=== PATIENT | female | born 1950 | race Caucasian/White ===

== ENCOUNTER 2020-09-28 13:24 | Inpatient (IN) | payer OTHER ==
[2020-09-28 14:45] LABS: Absolute Lymphocytes (CBC) 1.4 K/uL (0.7-4.9); Basophils % 0.4 % (0-1.3); Hematocrit 38.7 % (36.0-45.0); Lymphocytes % 10.8 % (15.3-44.8); MPV 7.3 fL (7.6-11.3); RBC Red Blood Cell Count 3.88 M/uL (3.86-4.86)
[2020-09-28 14:53] LABS: Protime INR 0.94
--- NOTE | 2020-09-28 15:03 | RAD REPORT ---
EXAM DESCRIPTION: RAD - Chest Single View - 09/28/2020 2:55 pm CLINICAL HISTORY: Cough;COPD COMPARISON: Two view chest September 2018 TECHNIQUE: AP portable chest image was obtained 09/28/2020 2:55 pm . FINDINGS: Chronic interstitial lung pattern matches comparison. No superimposed failure, infiltrate or mass. Heart and vasculature are normal. No measurable pleural effusion and no pneumothorax. No acu te bony abnormality seen. No acute aortic findings suspected. IMPRESSION: No acute cardiopulmonary process. No significant change from comparison study.
[2020-09-28 15:09] LABS: ALT/SGPT 40 U/L (12-78); AST/SGOT 24 U/L (15-37); Albumin 3.5 g/dL (3.4-5.0); Alkaline Phosphatase 141 U/L (45-117); BUN Blood Urea Nitrogen 14 mg/dL (7-18); Bicarbonate 35 mmol/L (21-32); Bilirubin Direct 0.1 mg/dL (0-0.2); Bilirubin Total 0.5 mg/dL (0.2-1.0); Glucose Level 101 mg/dL (74-106); Lipase 103 U/L (73-393); Magnesium 2.1 mg/dL (1.8-2.4); NT PRO-BNP 112 pg/mL (<125); Potassium 4.4 mmol/L (3.5-5.1); Protein, Total 7.3 g/dL (6.4-8.2); Sodium Level 146 mmol/L (136-145); Troponin (Emerg Dept Use Only) < 0.02 ng/mL (0.0-0.045)
--- NOTE | 2020-09-28 15:17 | RAD REPORT ---
EXAM DESCRIPTION: CT - Chest Abd Pelvis Wo Con - 09/28/2020 3:06 pm CLINICAL HISTORY: BACK PAIN;Cough;COPD COMPARISON: CTANGIO CHEST FOR PE dated 07/09/2014; Chest Single View dated 09/28/2020; Chest Pa And Lat (2 Views) dated 09/07/2018 TECHNIQUE: Axial 5 millimeter thick images of the chest, abdomen and pelvis were obtained without IV contrast. Oral contrast was administered. All CT scans are performed using dose optimization technique as appropriate and may include automated exposure control or mA/KV adjustment according to patient size. FINDINGS: Underlying fibro emphysematous changes are present with prominent bullous changes of the u pper lobes. No alveolar opacities in the interstitial pattern is decreased in prominence from 2014. N o significant edema. No pneumothorax or pleural effusion. No chest wall mass or abnormal axillary ly mphadenopathy seen. Mediastinal and hilar regions show no mass or abnormal lymphadenopathy. No sign ificant cardiac finding. The liver, spleen and pancreas show no significant findings for non contrast imaging. Cholecystectom y clips are present. No abnormal biliary tree dilatation. No hydronephrosis or suspicious renal mass. Isodense masses and pyelonephritis cannot be excluded on non contrast imaging. No adrenal abnormalities. Bilateral nonobstructing calyx calculi are present. Urinary bladder is fully contracted limiting assessment. Uterus is absent. Ovaries are absent or atro phic. No dilated bowel loops or focal ball bowel wall thickening. Moderate stool volume is seen in the righ t-side of the colon and in the transverse colon. The appendix is normal. No free air, free fluid or inflammatory stranding. No hernia, mass or bulky lymphadenopathy. Approximately 50% compression fracture deformity is present in the T6 vertebral body. Posterior wall encroaches mildly into the central canal. No pathologic component seen. This accentuates midthoracic kyphosis. Compression fracture is new from September 2018 but is otherwise of uncertain age. No other comp ression fracture changes or acute bone process seen. IMPRESSION: Approximately 50% compression fracture T6 body without pathologic component. This is new from September 2018 but is otherwise of uncertain age. No other acute bone process seen. Fibro emphysematous lung changes with no acute or worrisome CT chest finding. No acute CT abdomen or pelvis finding. CT abdomen and pelvis imaging shows no significant or suspicious finding.
[2020-09-28 15:19] LABS: Arterial Blood Carboxyhemoglob 1.7 % (0-1.5); Blood Gas Oxyhemoglobin 91.4 % (94-97); Blood O2 Saturation 93.6 % (92-98.5)
[2020-09-28] MEDS ORDERED: MORPHINE 2 MG/ML SYR ONE ×2 (15:27→17:13)
[2020-09-28] MEDS ORDERED: ONDANSETRON 4 MG/2 ML VIAL ONE (15:27)
[2020-09-28] MEDS ORDERED: NA CHLORIDE 0.9% 1,000 ML ONE (15:27)
[2020-09-28] MEDS ORDERED: LEVALBUTEROL 1.25 MG/3 ML NEB ONE (15:27)
[2020-09-28] MEDS ORDERED: FAMOTIDINE 20 MG/2 ML VIAL IV ONE (15:27)
[2020-09-28] MEDS ORDERED: IPRATROPIUM BROM 0.5MG/2.5ML ONE (15:27)
[2020-09-28] MEDS ORDERED: dexAMETHasone 10 MG/ML VIAL ONE (15:27)
--- NOTE | 2020-09-28 15:42 | ER ---
Nurse's Notes [facility] Name: Heide Blanc Age: 70 yrs Sex: Female : 1950 Arrival Date: 09/28/2020 Time: 13:28 Bed 24 Private MD: Diagnosis: Chronic obstructive pulmonary disease with (acute) exacerbation;Other fracture of unspecified thoracic vertebra-T6, 50% compression fracture;Weakness Presentation: 09/28 13:40 Chief complaint: EMS states: patient called from home c/o shortness of breath and chest zb pain and back pain. pain started 3 weeks ago but is continuously getting worse. Coronavirus screen: Client presents with at least one sign or symptom that may indicate coronavirus-19. Ebola Screen: No symptoms or risks identified at this time. Initial Sepsis Screen: Does the patient meet any 2 criteria? Yes Does the patient have a suspected source of infection? No. Patient's initial sepsis screen is negative. Risk Assessment: Do you want to hurt yourself or someone else? Patient reports no desire to harm self or others. Onset of symptoms was September 28, 2020. 13:40 Acuity: JALIL 2 zb 13:40 Method Of Arrival: [facility] Triage Assessment: 13:40 General: Appears uncomfortable, Behavior is anxious. Pain: Complains of pain in chest zb and lumbar area and thoracic area Pain does not radiate. Pain currently is 10 out of 10 on a pain scale. Quality of pain is described as aching, sharp, throbbing, Pain began 3 weeks ago Is continuous, Alleviated by nothing. Neuro: Level of Consciousness is awake, alert, obeys commands, Oriented to person, place, time, situation, Moves all extremities. Full function. Cardiovascular: Reports chest pain, shortness of breath, Heart tones S1 S2 present Patient's skin is warm and dry. Respiratory: Reports shortness of breath at rest on exertion labored breathing Airway is patent Respiratory effort is labored, Respiratory pattern is tachypnea Breath sounds are diminished bilaterally. the patient has moderate shortness of breath. GI: Abdomen is round Abdomen is tender to palpation X 4 quads. Reports constipation, Patient currently denies nausea, vomiting. : Urine is clear. Derm: Skin is fragile, is thin, Bruising that is bright red, dark purple, on bilateral arms. Musculoskeletal: Range of motion: intact in all extremities. Historical: - Allergies: 14:23 Sulfa (Sulfonamide Antibiotics); zb 14:23 steriods; zb - Home Meds: 14:23 dilaudid 4 mg tid [Active]; Belbuca 750 mcg buccal film 1 film 2 times per day zb [Active]; Celexa 10 mg Oral tab 1 tab once daily [Active]; clorazepate dipotassium 3.75 mg oral tab 2 times per day [Active]; anora inhaler 62.5 mcg/ 25mcg 1 puff at HS [Active]; albuterol sulfate 2.5 mg /3 mL (0.083 %) Inhl nebu 4 times per day [Active]; dexamethasone 1 mg Oral tab 1 tab 2 times per day [Active]; sumatriptan 100mg daily [Active]; - PMHx: 14:23 COPD; Migraines; Hypertension; zb - PSHx: 14:23 Hysterectomy; Cholecystectomy; back surgery; zb - Immunization history:: Adult Immunizations up to date. - Social history:: Smoking status: Patient/guardian denies using tobacco, Stopped _ months ago 6. - Family history:: not pertinent. - Hospitalizations: : No recent hospitalization is reported. Screenin:30 Abuse screen: Denies threats or abuse. Denies injuries from another. Nutritional zb screening: No deficits noted. Tuberculosis screening: No symptoms or risk factors identified. Fall Risk Fall in past 12 months (25 points). No secondary diagnosis (0 pts). IV access (20 points). Ambulatory Aid- Crutches/Cane/Walker (15 pts). Gait- Weak (10 pts.). Mental Status- Oriented to own ability (0 pts). Total Spencer Fall Scale indicates High Risk Score (45 or more points). Fall prevention measures have been instituted. Side Rails Up X 2 Placed Close to Nursing Station Frequent Obs/Assessments Occuring Family Present and informed to notify staff if the need to leave the bedside As available patient and family educated on Fall Prevention Program and Strategies. Assessment: 14:00 Reassessment: See triage note. zb 15:00 Reassessment: Patient appears in no apparent distress at this time. Patient and/or zb family updated on plan of care and expected duration. Pain level reassessed. IV infusing. 16:00 Reassessment: Patient appears in no apparent distress at this time. Patient and/or zb family updated on plan of care and expected duration. Pain level reassessed. hospitalist at bedside. Patient states symptoms have improved. 17:00 Reassessment: Patient appears in no apparent distress at this time. Patient is alert, zb oriented x 3, equal unlabored respirations, skin warm/dry/pink. Vital Signs: 14:24 BP 141 / 94; Pulse 93; Resp 24; Temp 99.8(O); Pulse Ox 100% 2 lpm ; Weight 65.77 kg; zb Height 5 ft. 2 in. (157.48 cm); Pain 10/10; 15:30 BP 159 / 88; Pulse 104; Resp 24; Pulse Ox 100% on 2 lpm NC; zb 16:49 BP 143 / 113; Pulse 102; Resp 22; Pulse Ox 100% on 2 lpm NC; zb 17:33 BP 141 / 87; Pulse 101; Resp 23; Pulse Ox 100% on 2 lpm NC; zb 14:24 Body Mass Index 26.52 (65.77 kg, 157.48 cm) zb ED Course: 13:28 Patient arrived in ED. iw 13:29 Jd Zarco MD is Attending Physician. talia 13:40 Sarah Champagne RN is Primary Nurse. zb 13:42 Triage completed. zb 14:16 Inserted saline lock: 22 gauge in left upper arm, using aseptic technique. Blood iw collected. 14:55 XRAY Chest (1 view) In Process Unspecified. EDMS 15:07 CT Chest Abdomen Pelvis W/O Contrast In Process Unspecified. EDMS 15:37 Hussein Dye MD is Hospitalizing Provider. talia 17:34 Patient has correct armband on for positive identification. Bed in low position. Call zb light in reach. Side rails up X 1. Adult w/ patient. potline monitor on. Pulse ox on. NIBP on. 18:30 Report given to JACLYN Benitez. zb 18:40 No provider procedures requiring assistance completed. Patient admitted, IV remains in zb place. 18:41 Arm band placed on. zb Administered Medications: 15:20 Drug: morphine 2 mg Route: IVP; Site: left upper arm; zb 15:45 Follow up: Response: No adverse reaction; Pain is decreased; RASS: Alert and Calm (0) zb 15:31 Drug: Pepcid (famotidine) 20 mg Route: IVP; Site: left upper arm; zb 16:10 Follow up: Response: No adverse reaction zb 15:31 Drug: Zofran (Ondansetron) 4 mg Route: IVP; Site: left upper arm; zb 16:00 Follow up: Response: No adverse reaction zb 15:32 Drug: NS 0.9% 1000 ml Route: IV; Rate: 125 ml/hr; Site: left upper arm; zb 18:45 Follow up: Response: No adverse reaction; IV Intake: 375ml zb 15:32 Drug: AtroVENT (ipratropium) Aerosol 0.5 mg Route: Inhalation; zb 15:32 Drug: Xopenex (levalbuterol) 2.5 mg Route: Inhalation; zb 15:32 Not Given (Duplicate Order): SOLU-Medrol (methylPrednisoLONE) 2 mg/kg IVP once talia 16:03 Drug: Decadron - Dexamethasone 4 mg Route: IVP; Site: left upper arm; zb 16:10 Follow up: Response: No adverse reaction zb 16:20 Drug: morphine 2 mg {Note: RASS +1.} Route: IVP; Site: left upper arm; zb 17:00 Follow up: Response: No adverse reaction; No change in condition; Pain is decreased; zb RASS: Alert and Calm (0) Intake: 18:45 IV: 375ml; Total: 375ml. zb Outcome: 15:41 Decision to Hospitalize by Provider. [facility] 18:41 Admitted to Med/surg accompanied by tech, via wheelchair, room 430, with oxygen, with zb chart, Report called to JACLYN Benitez 18:41 Condition: good 18:41 Instructed on the need for admit, Demonstrated understanding of instructions. 18:42 Patient left the ED. zb Signatures: Dispatcher [employer] Jd Perez MD MD cha Williams, Irene, RN RN iw Brown, Zipporah, RN RN zsy Corrections: (The following items were deleted from the chart) 19:40 19:38 Response: No adverse reaction; IV Intake: 375ml zb zb
--- NOTE | 2020-09-28 15:42 | EDPHYS ---
Physician Documentation [facility] Name: Heide Blanc Age: 70 yrs Sex: Female : 1950 Arrival Date: 09/28/2020 Time: 13:28 Bed 24 Private MD: [place] Physician Jd Zarco HPI: 09/28 14:27 This 70 yrs old Female presents to ER via EMS with complaints of COPD AND talia BACK PAIN. 14:27 The patient has shortness of breath with light activity. Onset: The symptoms/episode talia began/occurred 7 day(s) ago. Duration: The symptoms are continuous, and are steadily getting worse. The patient's shortness of breath is aggravated by coughing, light activity, walking, is alleviated by sitting up, application of supplemental oxygen. The patient presents with pain and decreased range of motion. The symptoms are located in the thoracic area and lumbar area. Onset: The symptoms/episode began/occurred 3 week(s) ago. The pain does not radiate. Historical: - Allergies: 14:23 Sulfa (Sulfonamide Antibiotics); zb 14:23 steriods; zb - Home Meds: 14:23 dilaudid 4 mg tid [Active]; Belbuca 750 mcg buccal film 1 film 2 times per day zb [Active]; Celexa 10 mg Oral tab 1 tab once daily [Active]; clorazepate dipotassium 3.75 mg oral tab 2 times per day [Active]; anora inhaler 62.5 mcg/ 25mcg 1 puff at HS [Active]; albuterol sulfate 2.5 mg /3 mL (0.083 %) Inhl nebu 4 times per day [Active]; dexamethasone 1 mg Oral tab 1 tab 2 times per day [Active]; sumatriptan 100mg daily [Active]; - PMHx: 14:23 COPD; Migraines; Hypertension; zb - PSHx: 14:23 Hysterectomy; Cholecystectomy; back surgery; zb - Immunization history:: Adult Immunizations up to date. - Social history:: Smoking status: Patient/guardian denies using tobacco, Stopped _ months ago 6. - Family history:: not pertinent. - Hospitalizations: : No recent hospitalization is reported. ROS: 14:30 Constitutional: Negative for fever, chills, and weight loss, Eyes: Negative for injury, talia pain, redness, and discharge, ENT: Negative for injury, pain, and discharge, Neck: Negative for injury, pain, and swelling, Cardiovascular: Negative for chest pain, palpitations, and edema, Abdomen/GI: Negative for abdominal pain, nausea, vomiting, diarrhea, and constipation, : Negative for injury, bleeding, discharge, and swelling, MS/Extremity: Negative for injury and deformity, Skin: Negative for injury, rash, and discoloration, Neuro: Negative for headache, weakness, numbness, tingling, and seizure, Psych: Negative for depression, anxiety, suicide ideation, homicidal ideation, and hallucinations, Allergy/Immunology: Negative for hives, rash, and allergies, Endocrine: Negative for neck swelling, polydipsia, polyuria, polyphagia, and marked weight changes, Hematologic/Lymphatic: Negative for swollen nodes, abnormal bleeding, and unusual bruising. 14:30 Respiratory: Positive for cough, shortness of breath, at rest. 14:30 Back: Positive for decreased range of motion, pain with movement, of the thoracic area and lumbar area. Exam: 14:30 Constitutional: This is a well developed, well nourished patient who is awake, alert, talia and in no acute distress. Head/Face: Normocephalic, atraumatic. Eyes: Pupils equal round and reactive to light, extra-ocular motions intact. Lids and lashes normal. Conjunctiva and sclera are non-icteric and not injected. Cornea within normal limits. Periorbital areas with no swelling, redness, or edema. ENT: Nares patent. No nasal discharge, no septal abnormalities noted. Tympanic membranes are normal and external auditory canals are clear. Oropharynx with no redness, swelling, or masses, exudates, or evidence of obstruction, uvula midline. Mucous membranes moist. Neck: Trachea midline, no thyromegaly or masses palpated, and no cervical lymphadenopathy. Supple, full range of motion without nuchal rigidity, or vertebral point tenderness. No Meningismus. Chest/axilla: Normal chest wall appearance and motion. Nontender with no deformity. No lesions are appreciated. Cardiovascular: Regular rate and rhythm with a normal S1 and S2. No gallops, murmurs, or rubs. Normal PMI, no JVD. No pulse deficits. Abdomen/GI: Soft, non-tender, with normal bowel sounds. No distension or tympany. No guarding or rebound. No evidence of tenderness throughout. Female : Normal external genitalia. Skin: Warm, dry with normal turgor. Normal color with no rashes, no lesions, and no evidence of cellulitis. 14:30 Respiratory: mild respiratory distress is noted, Respirations: labored breathing, that is mild, Breath sounds: decreased breath sounds, rhonchi, that are mild, stridor, that is mild, Respiratory rate: 24 15:49 ECG was reviewed by the Attending Physician. [facility] Vital Signs: 14:24 BP 141 / 94; Pulse 93; Resp 24; Temp 99.8(O); Pulse Ox 100% 2 lpm ; Weight 65.77 kg; zb Height 5 ft. 2 in. (157.48 cm); Pain 10/10; 15:30 BP 159 / 88; Pulse 104; Resp 24; Pulse Ox 100% on 2 lpm NC; zb 16:49 BP 143 / 113; Pulse 102; Resp 22; Pulse Ox 100% on 2 lpm NC; zb 17:33 BP 141 / 87; Pulse 101; Resp 23; Pulse Ox 100% on 2 lpm NC; zb 14:24 Body Mass Index 26.52 (65.77 kg, 157.48 cm) zb MDM: 13:29 Patient medically screened. talia 14:32 Differential diagnosis: Anemia Bronchitis Chronic Obstructive Pulmonary Disease talia arthritis, Fatigue Fracture Osteoarthritis Osteoporosis Peptic Ulcer Renal Infarction ruptured disc, Ureterolithiasis pneumonia, pulmonary edema, reactive airway disease. Antibiotic administration: Levaquin given. The patient's Wells Deep Vein Thrombosis Score was calculated as follows: Total Score: 0-2 Pts- Low Risk. The patient's pulmonary embolism risk score was calculated as follows: Total Score: 0-2 points. This patient was found to be at low risk for a pulmonary embolism by using the Well's assessment criteria. Immunization status: Pneumococcal vaccine: Influenza vaccine: Data reviewed: vital signs, nurses notes, lab test result(s), EKG, radiologic studies, CT scan, plain films. Data interpreted: cardiac monitor: rate is 93 beats/min, rhythm is regular, Pulse oximetry: on 2L(s) per nasal canula, is 100 %. Test interpretation: by ED physician or midlevel provider: ECG, plain radiologic studies. Counseling: I had a detailed discussion with the patient and/or guardian regarding: the historical points, exam findings, and any diagnostic results supporting the discharge/admit diagnosis, lab results, radiology results. 09/28 14:24 Order name: Basic Metabolic Panel [facility] 09/28 14:24 Order name: CBC with Diff; Complete Time: 15:30 [facility] 09/28 14:24 Order name: LFT's [facility] 09/28 14:24 Order name: Magnesium; Complete Time: 15:30 [facility] 09/28 14:24 Order name: NT PRO-BNP; Complete Time: 15:30 [facility] 09/28 14:24 Order name: PT-INR; Complete Time: 15:30 [facility] 09/28 14:24 Order name: Troponin (emerg Dept Use Only); Complete Time: 15:30 [facility] 09/28 14:24 Order name: Lipase; Complete Time: 15:30 [facility] 09/28 14:24 Order name: Blood Culture Adult (2) [facility] 09/28 14:24 Order name: ABG [facility] 09/28 14:25 Order name: Basic Metabolic Panel; Complete Time: 15:30 [facility] 09/28 14:25 Order name: Liver (Hepatic) Function; Complete Time: 15:30 [facility] 09/28 18:05 Order name: SARS-COV-2 RT PCR [facility] 09/28 14:24 Order name: XRAY Chest (1 view); Complete Time: 15:30 [facility] 09/28 14:24 Order name: EKG; Complete Time: 14:25 [facility] 09/28 14:24 Order name: Cardiac monitoring; Complete Time: 14:42 [facility] 09/28 14:24 Order name: EKG - Nurse/Tech; Complete Time: 14:43 [facility] 09/28 14:24 Order name: IV Saline Lock; Complete Time: 14:43 [facility] 09/28 14:24 Order name: Labs collected and sent; Complete Time: 14:43 [facility] 09/28 14:24 Order name: CT Chest Abdomen Pelvis W/O Contrast; Complete Time: 15:30 [facility] 09/28 16:50 Order name: CONS Physician Consult [facility] 09/28 14:24 Order name: O2 Per Protocol; Complete Time: 14:43 [facility] 09/28 14:24 Order name: O2 Sat Monitoring; Complete Time: 14:43 [facility] EC:49 Rate is 95 beats/min. Rhythm is regular. QRS Gilbert is Normal. RI interval is normal. QRS talia interval is normal. QT interval is normal. No Q waves. T waves are Normal. No ST changes noted. Clinical impression: Normal ECG and No evidence of ischemia. Interpreted by me. Reviewed by me. Administered Medications: 15:20 Drug: morphine 2 mg Route: IVP; Site: left upper arm; zb 15:45 Follow up: Response: No adverse reaction; Pain is decreased; RASS: Alert and Calm (0) zb 15:31 Drug: Pepcid (famotidine) 20 mg Route: IVP; Site: left upper arm; zb 16:10 Follow up: Response: No adverse reaction zb 15:31 Drug: Zofran (Ondansetron) 4 mg Route: IVP; Site: left upper arm; zb 16:00 Follow up: Response: No adverse reaction zb 15:32 Drug: NS 0.9% 1000 ml Route: IV; Rate: 125 ml/hr; Site: left upper arm; zb 18:45 Follow up: Response: No adverse reaction; IV Intake: 375ml zb 15:32 Drug: AtroVENT (ipratropium) Aerosol 0.5 mg Route: Inhalation; zb 15:32 Drug: Xopenex (levalbuterol) 2.5 mg Route: Inhalation; zb 15:32 Not Given (Duplicate Order): SOLU-Medrol (methylPrednisoLONE) 2 mg/kg IVP once talia 16:03 Drug: Decadron - Dexamethasone 4 mg Route: IVP; Site: left upper arm; zb 16:10 Follow up: Response: No adverse reaction zb 16:20 Drug: morphine 2 mg {Note: RASS +1.} Route: IVP; Site: left upper arm; zb 17:00 Follow up: Response: No adverse reaction; No change in condition; Pain is decreased; zb RASS: Alert and Calm (0) Disposition: 09/28/20 15:41 Hospitalization ordered by Hussein Dye for Inpatient Admission. Preliminary diagnosis are Chronic obstructive pulmonary disease with (acute) exacerbation, Other fracture of unspecified thoracic vertebra - T6, 50% compression fracture, Weakness. - Bed requested for Telemetry/MedSurg (observation). - Status is Inpatient Admission. zb - Condition is Fair. - Problem is new. - Symptoms have improved. Signatures: Dispatcher [employer] [facility] Jd Zarco MD MD cha Botello, Elizabeth eb Brown, Zipporah RN RN zb Corrections: (The following items were deleted from the chart) 17:13 16:31 CORONAVIRUS+MR.LAB.BRZ ordered. [facility] 17:25 15:41 Hospitalization Ordered by Hussein Dye MD for Inpatient Admission. Preliminary eb diagnosis is Chronic obstructive pulmonary disease with (acute) exacerbation; Other fracture of unspecified thoracic vertebra - T6, 50% compression fracture; Weakness. Bed requested for Telemetry/MedSurg (observation). Status is Inpatient Admission. Condition is Fair. Problem is new. Symptoms have improved. talia 18:42 17:25 09/28/2020 15:41 Hospitalization Ordered by Hussein Dye MD for Inpatient zb Admission. Preliminary diagnosis is Chronic obstructive pulmonary disease with (acute) exacerbation; Other fracture of unspecified thoracic vertebra - T6, 50% compression fracture; Weakness. Bed requested for Telemetry/MedSurg (observation). Status is Inpatient Admission. Condition is Fair. Problem is new. Symptoms have improved. eb
--- NOTE | 2020-09-28 17:07 | P.HP ---
Certification for Inpatient Patient admitted to: Inpatient With expected LOS: >2 Midnights Practitioner: I am a practitioner with admitting privileges, knowledge of patient current condition, hospital course, and medical plan of care. Services: Services provided to patient in accordance with Admission requirements found in Title 42 Section 412.3 of the Code of Federal Regulations Patient History Date of Service: 09/28/20 Reason for admission: Practical pain, compression fracture, neurologic symptoms, COPD History of Present Illness: 70yo F, PMH: chronic pain on dilaudid / buprenorphine, COPD on BIPAP at night, Migraines, Presents to ED due to severe, intractable back and chest pain. Associated with weakness in bilateral legs, R foot drop, worsened urinary incontinence, difficulty breathing. Patient tripped at home and fell ~3 weeks ago, landing on R side and back. Since then, symptoms have been progressively worsening. Patient is now debilitated due to the symptoms. She is unable to hardly move at this point. She has been taking her home chronic medication of Dilaudid p.o. 4 mg t.i.d., and buprenorphine 750mcg BID, and this has not been enough. She reports significant shortness of breath that has been worsening as well. Reports slight wheeze, and pain on inspiration. Denies any fevers/chills. h/o neck and lumbar back surgery >20 yrs ago. In the ER, workup notable for mild leukocytosis, bicarb: 35, ABG with pCO2: 53, PO2: 66. CT chest/abdomen/pelvis: 50% compression fracture T6 body without pathologic component. Waxer Operator wall encroaches mildly and to the central canal. This is new from September 2018, but otherwise of uncertain age. Fibro emphysematous lung changes with no acute or worrisome CT findings. ED physician recommends admission for pain control and copd treatment. Allergies bupropion HCl [From Wellbutrin] Allergy (Verified 07/10/14 13:56) Itching/Hives/Rash cortisone Allergy (Unverified 07/17/14 09:41) Unknown Sulfa (Sulfonamide Antibiotics) Allergy (Verified 07/09/14 21:54) Itching/Hives/Rash steroids Allergy (Severe, Uncoded 07/09/14 21:54) Anaphylaxis Home Medications: Ascorbic Acid [Vitamin C with Cristel Hips] 500 mg PO DAILY 07/10/14 Bifidobacterium Infantis [Align] 4 mg PO DAILY 07/10/14 Cholecalciferol (Vitamin D3) [Vitamin D3] 2,000 unit PO DAILY 07/10/14 Clorazepate Dipotassium [Tranxene T-Tab] 3.75 mg PO BIDP PRN 07/10/14 Cranberry Fruit Extract/Vit C [Azo Cranberry Softgel] 450 mg PO BID 07/10/14 Esomeprazole Mag Trihydrate [Nexium] 40 mg PO BEDTIME 07/10/14 Hydromorphone [Dilaudid*] 8 mg PO QIDP PRN 07/10/14 Milk Thistle Seed Extract [Milk Thistle] 250 mg PO DAILY 07/10/14 Multivit with Calcium,Iron,Min [Multiple Vitamins For Women] 2 tab PO DAILY 07/10/14 Karnack-3 Fatty Acids/Fish Oil [Fish Oil 1,000 mg Softgel] 1,000 mg PO DAILY 07/10/14 Pregabalin [Lyrica*] 50 mg PO BEDTIME 07/10/14 Theophylline Anhydrous [Trell-24] 200 mg PO DAILY 07/10/14 Ubidecarenone [Co Q-10] 100 mg PO DAILY 07/10/14 Umeclidinium Brm/Vilanterol Tr [Anoro Ellipta 62.5-25 Mcg INH] 1 puff IH DAILY #1 disk.w.dev 07/10/14 Citalopram [Celexa*] 10 mg PO DAILY #30 tablet 07/12/14 dexAMETHasone [Decadron*] 2 mg PO BID #20 tab 07/12/14 Albuterol Sulfate [Albuterol Sulfate 0.083% Neb Soln] 2.5 mg IH Q8HP PRN #90 ml 07/13/14 Megestrol [Megace*] 800 mg PO DAILY #240 ml 07/13/14 - Past Medical/Surgical History Diabetic: No -: COPD on chronic O2, BIPAP -: Smoker -: chronic back pain -: Hysterectomy -: back surgeries -: tumor removed from neck - Family History Family History: Reviewed- Non-Contributory - Social History Smoking Status: Former smoker (quit 6 yrs) Alcohol use: No CD- Drugs: No Caffeine use: Yes Place of Residence: Home Review of Systems 10-point ROS is otherwise unremarkable Physical Examination - Physical Exam General: Alert, Severe distress HEENT: Sclerae nonicteric Neck: Supple, No LAD Respiratory: Diminished, Expiratory wheezes, Other (poor inspiration) Cardiovascular: Regular rate/rhythm, Normal S1 S2, Edema (trace b/l to mid- tibia) Gastrointestinal: Soft and benign, Non-distended, Tenderness (RLQ (chronic)) Musculoskeletal: Tenderness (at level of T6-T7, and T10. tender along lumbar spine.), Other (lower back pain with passive/active ROM of b/l legs/hips) Integumentary: No rashes, No breakdown Neurological: Normal speech, Normal affect, Other (b/l upper extremities: 5/5 strength, sensation intact. b/l lower extremities: sensation intact, strength appears to be at least 4/5, significantly limited due to lumbar pain with testing) - Studies Laboratory Data (last 24 hrs) 09/28/20 14:30: PT 10.8, INR 0.94 09/28/20 14:30: WBC 13.30 H, Hgb 12.5, Hct 38.7, Plt Count 219 09/28/20 14:30: Sodium 146 H, Potassium 4.4, BUN 14, Creatinine 1.12, Glucose 101, Magnesium 2.1, Total Bilirubin 0.5, AST 24, ALT 40, Alkaline Phosphatase 141 H, Lipase 103 Assessment and Plan - Advance Directives Does patient have a Living Will: No Does patient have a Durable POA for Healthcare: No Physician Review Additional Text: Problem List T6 compression fracture, posterior mild encroachment of central canal Intractable acute back pain leg weakness, urinary incontinence Chronic lower back and chest pain acute on chronic COPD exacerbation chronic COPD on home O2, BIPAP at night -severe pain, admit for parenteral pain medication -suspect compression fracture from fall ~3 weeks ago, as timing fits -concern for nerve involvement given new weakness / worsened urinary incontinence -will obtain MRI for further evaluation -IV dilaudid ordered -need to confirm home medications, restart as appropriate -allergy to steroids, but reports takes dexamethasone BID chronically -will give 10mg IV dexamethasone, transition to PO tomorrow to see if assists with pain/weakness -neurology consulted -oxygen, nebs, steroids for component of COPD exacerbation, suspect SOB is from not wanting to breathe deeply due to pain -pulm consulted VTE: lovenox Code: full Dispo: anticipate hospitalization > 2 days, likely dc home Time Spent Managing Pts Care (In Minutes): 60
[2020-09-28] MEDS ORDERED: dexAMETHasone 10 MG/ML VIAL IV ONE (19:48)
[2020-09-28] MEDS ORDERED: ALBUTEROL 2.5 MG/3 ML NEB SOL NEB PRN (19:48)
[2020-09-28] MEDS ORDERED: ONDANSETRON 4 MG/2 ML VIAL IV PRN (19:48)
[2020-09-28] MEDS: HYDROMORPHONE HCL 1 MG/ML INJ IV PRN (22:08)
[2020-09-28] MEDS: ALBUTEROL 2.5 MG/3 ML NEB SOL NEB SCH (23:40)
[2020-09-28] MEDS: IPRATROPIUM BROM 0.5MG/2.5ML NEB SCH (23:40)
[2020-09-29 00:10] LABS: C-Reactive Protein 9.25 mg/L (<3.00)
[2020-09-29 00:25] VITALS: BMI 26.5
[2020-09-29] MEDS ORDERED: ALBUTEROL 2.5 MG/3 ML NEB SOL IH PRN (02:18)
[2020-09-29] MEDS ORDERED: CLORAZEPATE DIPOTASSIUM 7.5 MG PO PRN (02:18)
[2020-09-29] MEDS ORDERED: HOME MED 1 EA UNK (Ipratropium/Albuterol Sulfate [Combivent Respimat 20-100 Mcg] 4 GM Mist IH PRN (02:18)
[2020-09-29] MEDS ORDERED: IPRATROPIUM BROM 0.5MG/2.5ML IH PRN (02:36)
[2020-09-29] MEDS: IPRATROPIUM BROM 0.5MG/2.5ML NEB SCH ×4 (02:52→19:25)
[2020-09-29] MEDS: ALBUTEROL 2.5 MG/3 ML NEB SOL NEB SCH ×4 (02:52→19:25)
[2020-09-29] MEDS: HYDROMORPHONE HCL 1 MG/ML INJ IV PRN ×5 (03:23→18:49)
[2020-09-29 04:14] LABS: Absolute Lymphocytes (CBC) 0.7 K/uL (0.7-4.9); Basophils % 0.1 % (0-1.3); Hematocrit 34.6 % (36.0-45.0); Lymphocytes % 6.6 % (15.3-44.8); MPV 7.4 fL (7.6-11.3); RBC Red Blood Cell Count 3.46 M/uL (3.86-4.86)
[2020-09-29 05:03] LABS: Bilirubin Total 0.4 mg/dL (0.2-1.0); Magnesium 2.1 mg/dL (1.8-2.4); Phosphorus 3.5 mg/dL (2.5-4.9); Potassium 3.8 mmol/L (3.5-5.1); Protein, Total 6.6 g/dL (6.4-8.2)
[2020-09-29 06:01] LABS: Urine Appearance CLEAR (Clear); Urine Bilirubin NEGATIVE (Negative); Urine Blood NEGATIVE (Negative); Urine Color YELLOW (Yellow); Urine Glucose NEGATIVE (Negative); Urine Protein NEGATIVE (Negative); Urine Specific Gravity 1.015 (1.005-1.030); Urine Urobilinogen 0.2 mg/dL (0.2-1.0); Urine pH 7.5 (5.0-7.0)
[2020-09-29 06:24] LABS: Urine Microscopic Reflex NO UMIC
[2020-09-29] MEDS ORDERED: HYDROMORPHONE ORAL 4 MG TAB PO PRN (06:58)
--- NOTE | 2020-09-29 07:02 | P.PN ---
Subjective Date of Service: 09/29/20 Chief Complaint: Practical pain, compression fracture, neurologic symptoms, COPD Subjective: Improving (slight improvement, still with moderate-severe pain, uncomfortable, no nausea, urinary incontinence improved, no numbness/tingling in feet) Review of Systems 10-point ROS is otherwise unremarkable Physical Examination - Vital Signs Temperature: 97.6 F Blood Pressure: 134/94 Pulse: 91 Respirations: 19 Pulse Ox (%): 96 - Studies Laboratory Data (last 24 hrs) 09/28/20 14:30: PT 10.8, INR 0.94 09/28/20 14:30: WBC 13.30 H, Hgb 12.5, Hct 38.7, Plt Count 219 09/28/20 14:30: Sodium 146 H, Potassium 4.4, BUN 14, Creatinine 1.12, Glucose 101, Magnesium 2.1, Total Bilirubin 0.5, AST 24, ALT 40, Alkaline Phosphatase 141 H, Lipase 103 Assessment & Plan Physician Review Additional Text: Physical Exam General: Alert, mild-mod distress, appears uncomfortable HEENT: Sclerae nonicteric Respiratory: Diminished, poor inspiration, mild wheeze Cardiovascular: Regular rate/rhythm, Normal S1 S2, Edema (trace b/l to mid- tibia) Gastrointestinal: Soft and benign, Non-distended Musculoskeletal: Tenderness (at level of T6-T7, and T10. tender along lumbar spine.), lower back pain with passive/active ROM of b/l legs/hips Integumentary: No rashes, No breakdown Neurological: Normal speech, Normal affect, b/l upper extremities: 5/5 strength, sensation intact. b/l lower extremities: sensation intact, strength appears to be 4+/5 at least, limited due to pain Problem List T6 compression fracture, posterior mild encroachment of central canal Intractable acute on chronic back pain leg weakness, urinary incontinence, improving Chronic lower back and chest pain acute on chronic COPD exacerbation chronic COPD on home O2, BIPAP at night -suspect compression fracture from fall ~3 weeks ago, as timing fits -concern for nerve involvement given new weakness / worsened urinary incontinence, no critical findings on CT -MRI ordered for further eval -continue home pain regimen, IV dilaudid for breakthrough, will titrate oral meds -10mg IV dexamethasone on 09/28, continue PO 4mg BID for possible neuro involvement -neurology consulted -oxygen, nebs, steroids for component of COPD exacerbation, suspect SOB is from not wanting to breathe deeply due to pain -pulm consulted VTE: Lovenox Code: full Dispo: anticipate dc home in ~48hrs needs further pain control, PT eval, MRI Time Spent Managing Pts Care (In Minutes): 40
[2020-09-29] MEDS: BUPRENORPHINE HCL 750 MCG PO SCH ×2 (09:00→21:00)
[2020-09-29] MEDS: MULTIVIT MIN PO SCH ×2 (09:00→21:00)
[2020-09-29] MEDS ORDERED: UBIDECARENONE 100 MG PO SCH (09:00)
[2020-09-29] MEDS: VIT C PO SCH ×2 (09:00→21:00)
[2020-09-29] MEDS: FOLIC ACID PO SCH ×2 (09:00→21:00)
[2020-09-29] MEDS: UBIDECARENONE 100 MG PO SCH (09:00)
[2020-09-29] MEDS: CRANBERRY FRUIT EXTRACT PO SCH ×2 (09:00→21:00)
[2020-09-29] MEDS: BIOTIN PO SCH ×2 (09:00→21:00)
[2020-09-29] MEDS: VITAMIN D 1000 UNIT TAB PO SCH (09:32)
[2020-09-29] MEDS: ENOXAPARIN 40 MG/0.4 ML SQ SCH (09:33)
[2020-09-29] MEDS: MULTIVITAMIN TAB PO SCH (09:33)
[2020-09-29] MEDS: TOPIRAMATE 100 MG TAB PO SCH ×2 (09:33→21:12)
[2020-09-29] MEDS: dexAMETHasone 4 MG TAB PO SCH ×2 (09:33→16:49)
[2020-09-29] MEDS: ASCORBIC ACID 500 MG TABLET PO SCH ×2 (09:33→21:13)
--- NOTE | 2020-09-29 12:44 | RAD REPORT ---
EXAM DESCRIPTION: CT - Head Brain Wo Cont - 09/29/2020 9:46 am CLINICAL HISTORY: Bilateral lower leg weakness COMPARISON: None TECHNIQUE: Computed axial tomography of the head was obtained. IV contrast was not requested. All CT scans are performed using dose optimization technique as appropriate and may include automated exposure control or mA/KV adjustment according to patient size. FINDINGS: An intracranial bleed is not seen . The ventricles are normal in caliber. No extra-axial fluid collection is noted. Mild to moderate low-density areas within periventricular, deep and subcortical white matter likely r epresent ischemic changes secondary to small vessel disease. Fluid within the sinuses/ mastoids is not seen. IMPRESSION: No acute intracranial abnormality is seen. If patient's symptoms persist MRI of the bra in would be recommended.
[2020-09-29] MEDS: Umeclidinium Brm/Vilanterol Tr [Anoro Ellipta 62.5-25 Mcg Inh] IH SCH (21:00)
[2020-09-29] MEDS: ELDERBERRY FRUIT AND FLOWER PO SCH (21:00)
[2020-09-29] MEDS: CITALOPRAM 10 MG TABLET PO SCH (21:13)
[2020-09-29] MEDS: HYDROMORPHONE ORAL 4 MG TAB PO PRN (21:13)
[2020-09-30] MEDS: IPRATROPIUM BROM 0.5MG/2.5ML NEB SCH ×4 (01:25→20:00)
[2020-09-30] MEDS: ALBUTEROL 2.5 MG/3 ML NEB SOL NEB SCH ×4 (01:25→20:00)
[2020-09-30] MEDS: HYDROMORPHONE HCL 1 MG/ML INJ IV PRN ×6 (01:28→21:40)
[2020-09-30] MEDS: HYDROMORPHONE ORAL 4 MG TAB PO PRN ×6 (03:26→23:47)
[2020-09-30 04:21] LABS: Lymphocytes % 15.9 % (15.3-44.8); MPV 7.3 fL (7.6-11.3); RBC Red Blood Cell Count 3.32 M/uL (3.86-4.86)
[2020-09-30 04:27] LABS: Phosphorus 3.6 mg/dL (2.5-4.9); Potassium 3.6 mmol/L (3.5-5.1)
[2020-09-30] MEDS: dexAMETHasone 4 MG TAB PO SCH ×2 (07:24→16:10)
[2020-09-30] MEDS: MULTIVITAMIN TAB PO SCH (07:24)
[2020-09-30] MEDS: ASCORBIC ACID 500 MG TABLET PO SCH ×2 (07:24→19:31)
[2020-09-30] MEDS: VITAMIN D 1000 UNIT TAB PO SCH (07:24)
[2020-09-30] MEDS: TOPIRAMATE 100 MG TAB PO SCH ×2 (07:24→19:31)
[2020-09-30] MEDS: ENOXAPARIN 40 MG/0.4 ML SQ SCH (07:25)
--- NOTE | 2020-09-30 07:25 | P.PN ---
Subjective Date of Service: 09/30/20 Chief Complaint: Practical pain, compression fracture, neurologic symptoms, COPD Subjective: Improving (pain better controlled with increased freq of dilaudid. ran out of [facility]. for mri today, improved urinary incontinence, pain 7-8/10 at best so far) Review of Systems 10-point ROS is otherwise unremarkable Physical Examination - Vital Signs Temperature: 97.1 F Blood Pressure: 129/67 Pulse: 100 Respirations: 19 Pulse Ox (%): 98 Assessment & Plan Physician Review Additional Text: Physical Exam General: Alert, mild-mod distress, appears uncomfortable HEENT: Sclerae nonicteric Respiratory: Diminished, poor inspiration, mild wheeze Cardiovascular: Regular rate/rhythm, Normal S1 S2, Edema (trace b/l to mid- tibia) Gastrointestinal: Soft and benign, Non-distended Musculoskeletal: Tenderness (at level of T6-T7, and T10. tender along lumbar spine.), lower back pain with passive/active ROM of b/l legs/hips Integumentary: No rashes, No breakdown Neurological: Normal speech, Normal affect, b/l upper extremities: 5/5 strength, sensation intact. b/l lower extremities: sensation intact, strength appears to be 4+/5 at least, limited due to pain Problem List T6 compression fracture, posterior mild encroachment of central canal Intractable acute on chronic back pain leg weakness, urinary incontinence, improving Chronic lower back and chest pain chronic severe COPD on home O2, BIPAP at night -compression fracture - likely from mechanical fall ~ 3 weeks ago -concern for central canal stenosis / nerve involvement given new weakness / worsened urinary incontinence, no critical findings on CT -MRI ordered for further eval - unavailable over weekend -increase frequency of dilaudid, IV dilaudid for breakthrough, will titrate oral meds -10mg IV dexamethasone on 09/28, continue PO 4mg BID for suspected neuro involvement -neurology consulted -oxygen, nebs, for chronic COPD, suspect SOB is from not wanting to breathe deeply due to pain -pulm consulted VTE: Lovenox Code: full Dispo: needs further pain control, PT eval, MRI Time Spent Managing Pts Care (In Minutes): 55
[2020-09-30] MEDS: BUPRENORPHINE HCL 750 MCG PO SCH ×2 (07:26→19:24)
[2020-09-30] MEDS: VIT C PO SCH ×2 (07:26→19:24)
[2020-09-30] MEDS: FOLIC ACID PO SCH ×2 (07:26→19:25)
[2020-09-30] MEDS: CRANBERRY FRUIT EXTRACT PO SCH ×2 (07:26→19:24)
[2020-09-30] MEDS: BIOTIN PO SCH ×2 (07:26→19:25)
[2020-09-30] MEDS: MULTIVIT MIN PO SCH ×2 (07:26→19:25)
[2020-09-30] MEDS: UBIDECARENONE 100 MG PO SCH (07:27)
[2020-09-30] MEDS ORDERED: POTASSIUM 25 MEQ EFFERV TAB PO ONE (09:00)
--- NOTE | 2020-09-30 09:53 | RAD REPORT ---
EXAM DESCRIPTION: MRI - Thoracic Spine W/Wo Contr - 09/30/2020 8:58 am CLINICAL HISTORY: compression fracture, eval other / nerve impngemen Radiculopathy, back pain COMPARISON: Chest Abd Pelvis Wo Con dated 09/28/2020; Head Brain Wo Cont dated 09/29/2020; Spine Lumba r W/Wo Cont dated 09/30/2020 FINDINGS: MRI thoracic spine and MRI lumbar spine were performed without and with contrast There is mild compression fracture affecting the inferior aspect of the T5 vertebral body with 20% lo ss of vertebral body height estimated. Moderate compression fracture is present involving the T6 vert ebral body with 50% loss of vertebral body height estimated. Both of these fractures demonstrate T2 a nd FLAIR hyperintensity compatible with acute to subacute time frame. There is spinal canal narrowing of significance caused by these fractures at the T5-6 level. Elsewhere, there is no thoracic or lumbar spine compression fracture seen. No marrow replacing proces s. Moderate lower lumbar degenerative changes are present. In particular there is posterior disc bulging present notable at L4-5 and mild degenerative retrolisthesis at L5-S1. No high-grade lumbar canal st enosis or foraminal narrowing. Mild enhancement of the T5 and T6 vertebral bodies is seen, elsewhere no enhancement is identified. IMPRESSION: Acute to subacute time frame T5 and T6 vertebral body compression fractures as detailed. There is significant central canal stenosis caused by this at T5-6. No compression deformity seen of the lumbar spine, although moderate lower lumbar degenerate spondylo sis is present.
--- NOTE | 2020-09-30 13:10 | RAD REPORT ---
EXAM DESCRIPTION: MRI - Spine Lumbar W/Wo Cont- 09/30/2020 9:01 am CLINICAL HISTORY: Compression fracture, eval other / nerve impngemen Radiculopathy, back pain COMPARISON: Chest Abd Pelvis Wo Con dated 09/28/2020; Head Brain Wo Cont dated 09/29/2020; Spine Lumba r W/Wo Cont dated 09/30/2020 FINDINGS: MRI thoracic spine and MRI lumbar spine were performed without and with contrast There is mild compression fracture affecting the inferior aspect of the T5 vertebral body with 20% lo ss of vertebral body height estimated. Moderate compression fracture is present involving the T6 vert ebral body with 50% loss of vertebral body height estimated. Both of these fractures demonstrate T2 a nd FLAIR hyperintensity compatible with acute to subacute time frame. There is spinal canal narrowing of significance caused by these fractures at the T5-6 level. Elsewhere, there is no thoracic or lumbar spine compression fracture seen. No marrow replacing proces s. Moderate lower lumbar degenerative changes are present. In particular there is posterior disc bulging present notable at L4-5 and mild degenerative retrolisthesis at L5-S1. No high-grade lumbar canal st enosis or foraminal narrowing. Mild enhancement of the T5 and T6 vertebral bodies is seen, elsewhere no enhancement is identified. IMPRESSION: Acute to subacute time frame T5 and T6 vertebral body compression fractures as detailed. There is significant central canal stenosis caused by this at T5-6. No compression deformity seen of the lumbar spine, although moderate lower lumbar degenerate spondylo sis is present.
--- NOTE | 2020-09-30 15:53 | EKG ---
Test Date: 2020-09-28 Test Time: 13:37:16 [employer]visor [employer]: LUZ ELENA MEASUREMENT RESULTS: Intervals: Rate: 95 MD: 148 QRSD: 80 QT: 360 QTc: 452 [place]: P: 87 MD: 148 QRS: 57 T: 79 INTERPRETIVE STATEMENTS: Normal sinus rhythm Normal ECG Compared to ECG 09/09/2015 11:13:48 No significant changes Electronically Signed On 09-30-20 15:47:36 CDT by Bryson Moore
[2020-09-30] MEDS: Umeclidinium Brm/Vilanterol Tr [Anoro Ellipta 62.5-25 Mcg Inh] IH SCH (19:25)
[2020-09-30] MEDS: ELDERBERRY FRUIT AND FLOWER PO SCH (19:25)
[2020-09-30] MEDS: CITALOPRAM 10 MG TABLET PO SCH (19:32)
--- NOTE | 2020-09-30 20:52 | CON ---
Reason For Consultation: Consultation called because of thoracic vertebral compression fracture. History Of Present Illness: Ms. Blanc is a 70-year-old patient with COPD on BiPAP, migrai elaine, who came to [facility] with severe back pain that was intractable. Back pain began abo ut 3 weeks ago after she fell, landing on the right side and her back. Pain was localized to the harika k, but did radiate into the lower extremities. Since onset, she has had progressive difficulty with ambulation and control of bladder function. She came to [facility] and was admitted on the 28 of September with intractable pain and imaging showed the compression fracture as detailed in the tho racic region involving levels T5 and T6. There was significant canal stenosis at T5-6 level. She wa s given Decadron in the emergency room and has been on Decadron 4 mg twice daily with some improvemen t in bladder function, but with maintained significant weakness and pain in the back, which has been moderately refractory to Dilaudid 4 mg every 4 hours. She has a Decadron as indicated and Celexa as well. Given the patient's clinical findings and her significant imaging showing thoracic cord compression, it was determined that she required a higher level of care for decompression and pain management to [facility] in [place] and transfer was initiated and is successful. At this point, the patient is awaiti ng a bed in [place]. Past Medical History: As indicated including COPD with chronic back pain. Past Surgical History: Hysterectomy, back surgeries, removal of tumor from her neck. Family History: Noncontributory. Allergies: BUPROPION, CORTISONE, SULFA, AND REPORTEDLY STEROIDS, HOWEVER, THE PATIENT HAS BEEN DOING WELL ON STEROIDS WHILE NO ALLERGIC REACTION IS SEEN. Medications: At home, vitamin C 500 mg daily, Align probiotic 4 mg daily, vitamin D3 2000 units josiah y, Tranxene 3.75 mg twice daily, AZO Cranberry soft gel 450 mg twice daily, Nexium 40 mg daily, Dilau did 8 mg q.4 hours as needed, which she has actually been taking prior to hospitalization for chronic back pain, Milk Thistle 250 mg daily, multivitamin with calcium and iron 4 woman 2 times daily, fish oil 1000 mg softgel daily, Lyrica 50 mg at bedtime, Trell-24 200 mg daily, CoQ10 100 mg daily, Celexa 10 mg daily, albuterol nebulizer 2.5 mg every 8 hours as needed, Megace 800 mg daily. Review of Systems: The patient has moderate to severe pain. She is actually sitting at the side of the bed with help of physical therapist. She was actually told along with her physical therapist that she should have a back brace put in place and I will hold off on ambulation or standing at this point until her cord co mpression in the thoracic region and pain is managed. Otherwise, on review of systems, unremarkable. Physical Examination: Vital Signs: Blood pressure 129/67, pulse 89, respiratory rate 16, temperature 97.2, oxygen saturati on 98% on room air. Weight 145 pounds, height 5 feet 2 inches, BMI 26.5. General: Ms. Blanc is sitting in bed. She is in some moderate distress due to chronic back pain wi th worsening pain. HEENT: She is otherwise normocephalic, atraumatic. Sclerae anicteric. Oropharynx is pink and moist. Neck: Supple. Chest: Clear. Heart: Regular. Extremities: No significant edema or cyanosis. Neurological: She is alert and oriented to situation, place, and person. Follows commands appropria te. Cranial nerves show no focal deficits. Motor in the upper extremities 5/5 and lower extremities limited by pain, at least 4-5. Coordination intact in the upper and lower extremities. Gait, she w ill be not ambulated given the significant back pain and for compression. Reflexes are symmetric in the upper and lower extremities. Laboratory Studies: Complete blood count with differential shows elevated white blood cell count of 12.3 with 77.7% neutrophils, hemoglobin is 11.2. INR 0.94. Arterial blood gas from 2 days ago, pH 7 .36, pCO2 53, pO2 66. Chemistries showed sodium 147, potassium 3.6, chloride 111, carbon dioxide 30, BUN 11, creatinine 1.1, glucose 97, calcium 8.9, magnesium 2.0. Alkaline phosphatase 124, ALT and A ST are normal. Vitamin D level is 63.5. ADAM is pending. COVID-19 negative. Assessment: Ms. Blanc is a 70-year-old patient with T5-T6 compression fractures with cord compressi on. These are traumatic fractures. She has chronic obstructive pulmonary disease in terms of other comorbid conditions and is on antidepressants for depression. She is being transferred for thoracic cord decompression to [place]. Plan: Continue Decadron as indicated. Otherwise, continue current comorbid conditions. Topiramate 100 mg twice daily to help with headaches and other medications as listed above. RUSS/LENORE Voice ID: [id number] Report ID: [id number]
[2020-10-01] MEDS: ALBUTEROL 2.5 MG/3 ML NEB SOL NEB SCH ×4 (02:45→20:10)
[2020-10-01] MEDS: IPRATROPIUM BROM 0.5MG/2.5ML NEB SCH ×4 (02:45→20:10)
[2020-10-01] MEDS: HYDROMORPHONE HCL 1 MG/ML INJ IV PRN ×5 (03:21→19:57)
[2020-10-01 04:01] LABS: Absolute Lymphocytes (CBC) 1.3 K/uL (0.7-4.9); Basophils % 0.1 % (0-1.3); Hematocrit 35.9 % (36.0-45.0); Lymphocytes % 12.6 % (15.3-44.8); MPV 7.5 fL (7.6-11.3)
[2020-10-01 04:08] LABS: Magnesium 2.2 mg/dL (1.8-2.4); Potassium 3.8 mmol/L (3.5-5.1)
[2020-10-01] MEDS ORDERED: POTASSIUM CL SA 10 MEQ TAB PO ONE (04:51)
[2020-10-01] MEDS: HYDROMORPHONE ORAL 4 MG TAB PO PRN ×5 (05:00→21:33)
[2020-10-01] MEDS: MULTIVITAMIN TAB PO SCH (07:17)
[2020-10-01] MEDS: ASCORBIC ACID 500 MG TABLET PO SCH ×2 (07:17→19:57)
[2020-10-01] MEDS: ENOXAPARIN 40 MG/0.4 ML SQ SCH (07:17)
[2020-10-01] MEDS: VITAMIN D 1000 UNIT TAB PO SCH (07:17)
[2020-10-01] MEDS: dexAMETHasone 4 MG TAB PO SCH ×2 (07:17→16:48)
[2020-10-01] MEDS: TOPIRAMATE 100 MG TAB PO SCH ×2 (07:17→19:57)
[2020-10-01] MEDS: FOLIC ACID PO SCH ×2 (07:19→19:58)
[2020-10-01] MEDS: BIOTIN PO SCH ×2 (07:19→19:58)
[2020-10-01] MEDS: UBIDECARENONE 100 MG PO SCH (07:19)
[2020-10-01] MEDS: VIT C PO SCH ×2 (07:19→19:58)
[2020-10-01] MEDS: BUPRENORPHINE HCL 750 MCG PO SCH ×2 (07:19→19:58)
[2020-10-01] MEDS: CRANBERRY FRUIT EXTRACT PO SCH ×2 (07:19→19:58)
[2020-10-01] MEDS: MULTIVIT MIN PO SCH ×2 (07:19→19:58)
--- NOTE | 2020-10-01 17:42 | P.PN ---
Subjective Date of Service: 10/01/20 Chief Complaint: Practical pain, compression fracture, neurologic symptoms, COPD No new complain. Physical Examination - Vital Signs Temperature: 97.3 F Blood Pressure: 124/66 Pulse: 92 Respirations: 18 Pulse Ox (%): 96 - Physical Exam General: Alert, In no apparent distress, Oriented x3 HEENT: Mucous membr. moist/pink Neck: JVD not distended Respiratory: Clear to auscultation bilaterally, Normal air movement Cardiovascular: No edema, Regular rate/rhythm, Normal S1 S2 Gastrointestinal: Normal bowel sounds, Soft and benign, Non-distended Musculoskeletal: No swelling Integumentary: No rashes Neurological: Normal strength at 5/5 x4 extr Assessment And Plan - Current Problems (Diagnosis) (1) Compression fracture of body of thoracic vertebra Current Visit: Yes Status: Acute (2) COPD (chronic obstructive pulmonary disease) Current Visit: Yes Status: Acute Physician Review Additional Text: Problem List T6 compression fracture, posterior mild encroachment of central canal Intractable acute on chronic back pain leg weakness, urinary incontinence, improving Chronic lower back and chest pain chronic severe COPD on home O2, BIPAP at night -compression fracture - likely from mechanical fall ~ 3 weeks ago -concern for central canal stenosis / nerve involvement given new weakness / worsened urinary incontinence. -MRI:T4, T5 vertebral body compression fractures with central canal stenosis. -pain control with Dilaudid -continue steroid. -neurology input appreciated -patient to be transferred to tertiary center for cord decompression. -contain oxygen, nebs, for chronic COPD. VTE: Lovenox Code: full
[2020-10-01] MEDS: CITALOPRAM 10 MG TABLET PO SCH (19:57)
[2020-10-01] MEDS: ELDERBERRY FRUIT AND FLOWER PO SCH (19:58)
[2020-10-01] MEDS: Umeclidinium Brm/Vilanterol Tr [Anoro Ellipta 62.5-25 Mcg Inh] IH SCH (19:59)
[2020-10-01 22:06] VITALS: O2SAT 96
[2020-10-02] MEDS: HYDROMORPHONE HCL 1 MG/ML INJ IV PRN (00:01)
[2020-10-02 01:01] VITALS: BP 142/79; TEMP 97.2
[2020-10-02] MEDS: HYDROMORPHONE ORAL 4 MG TAB PO PRN (01:24)
[2020-10-02] MEDS: IPRATROPIUM BROM 0.5MG/2.5ML NEB SCH (01:31)
[2020-10-02] MEDS: ALBUTEROL 2.5 MG/3 ML NEB SOL NEB SCH (01:31)
--- NOTE | 2020-10-06 16:10 | P.DS ---
Admission Date: 09/28/20 Discharge Date: 10/02/20 Disposition: TRANSFER TO [facility] Discharge Condition: FAIR Reason for Admission: Practical pain, compression fracture, neurologic symptoms, COPD Consultations: Neurology-Dr. Hill. - Problems (1) Compression fracture of body of thoracic vertebra Status: Acute (2) COPD (chronic obstructive pulmonary disease) Status: Acute Brief History of Present Illness: 70yo woman with a past medical history of chronic pain on dilaudid / buprenorphine, COPD on BIPAP at night, Migraines, presented to the ED due to severe, intractable back and chest pain along with weakness in bilateral legs, R foot drop, urinary incontinence and difficulty breathing. Patient stated she tripped at home and fell and landed on her right side and by about 3 weeks prior. Her home chronic pain medications were not enough to control her pain. She had a neck and lumbar back surgery >20 yrs ago. In the ER, workup notable for mild leukocytosis, bicarb: 35, ABG with pCO2: 53, PO2: 66. CT chest/abdomen/pelvis: 50% compression fracture T6 body without pathologic component, findings new from September 2018, but otherwise of uncertain age. Emphysematous lung changes with no acute or worrisome CT findings. Patient admitted for further management. Hospital Course: T6 compression fracture, posterior mild encroachment of central canal Intractable acute on chronic back pain leg weakness, urinary incontinence, improving Chronic lower back and chest pain chronic severe COPD on home O2, BIPAP at night -compression fracture - likely from mechanical fall ~ 3 weeks ago -concern for central canal stenosis / nerve involvement given new weakness / worsened urinary incontinence. -MRI of the spine:T4, T5 vertebral body compression fractures with central canal stenosis. -pain controlled with Dilaudid -patient seen by Neuro-Dr. Hill and placed on steroid therapy. -Dr. Hill recommended transfer to tertiary center for evaluation and and possible cord decompression -patient subsequently accepted to [facility] for transfer -she is stable for transfer Vital Signs/Physical Exam: Temp Pulse Resp BP Pulse Ox 97.2 F 98 H 18 142/79 H 100 10/02/20 00:00 10/02/20 00:00 10/02/20 00:31 10/02/20 00:00 10/02/20 00:31 General: Alert, In no apparent distress, Oriented x3 HEENT: Mucous membr. moist/pink Respiratory: Clear to auscultation bilaterally, Normal air movement Cardiovascular: No edema, Regular rate/rhythm, Normal S1 S2 Gastrointestinal: Normal bowel sounds, Soft and benign, Non-distended, No tenderness Musculoskeletal: No swelling Integumentary: No rashes Laboratory Data at Discharge: WBC 10.50 K/uL (4.3-10.9) D 10/01/20 03:17 Hgb 12.0 g/dL (12.0-15.0) 10/01/20 03:17 Hct 35.9 % (36.0-45.0) L 10/01/20 03:17 Plt Count 184 K/uL (152-406) 10/01/20 03:17 PT 10.8 SECONDS (9.5-12.5) 09/28/20 14:30 INR 0.94 09/28/20 14:30 Sodium 145 mmol/L (136-145) 10/01/20 03:17 Potassium 3.8 mmol/L (3.5-5.1) 10/01/20 03:17 BUN 17 mg/dL (7-18) 10/01/20 03:17 Creatinine 1.23 mg/dL (0.55-1.3) 10/01/20 03:17 Glucose 121 mg/dL (74-106) H 10/01/20 03:17 Phosphorus 3.6 mg/dL (2.5-4.9) 09/30/20 03:22 Magnesium 2.2 mg/dL (1.8-2.4) 10/01/20 03:17 Total Bilirubin 0.4 mg/dL (0.2-1.0) 09/29/20 03:43 AST 22 U/L (15-37) 09/29/20 03:43 ALT 34 U/L (12-78) 09/29/20 03:43 Alkaline Phosphatase 124 U/L (45-117) H 09/29/20 03:43 Lipase 103 U/L (73-393) 09/28/20 14:30 Home Medications: Clorazepate Dipotassium [Tranxene T-Tab] 3.75 mg PO BIDP PRN 07/10/14 Cranberry Fruit Extract/Vit C [Azo Cranberry Softgel] 450 mg PO BID 07/10/14 Hydromorphone [Dilaudid*] 8 mg PO TID 07/10/14 Albuterol Sulfate [Albuterol Sulfate 0.083% Neb Soln] 2.5 mg IH QID 09/29/20 Ascorbic Acid [Vitamin C] 500 mg PO BID 09/29/20 Buprenorphine HCl [Belbuca] 750 mcg PO BID 09/29/20 Cholecalciferol (Vitamin D3) [Vitamin D3] 1 cap PO DAILY 09/29/20 Citalopram [Celexa*] 10 mg PO BEDTIME 09/29/20 Elderberry Fruit and Flower [Black Elderberry 575 mg Cap] 1,250 mg PO BEDTIME 09/29/20 Ipratropium/Albuterol Sulfate [Combivent Respimat 20-100 Mcg] 1 puff IH TID 09/29/20 Multivit with Calcium,Iron,Min [Multiple Vitamins For Women] 1 tab PO DAILY 09/29/20 Multivit-Min/Folic Acid/Biotin [Hair, Skin and Nails Caplet] 1 tab PO BID 09/29/20 SUMAtriptan succinate [Sumatriptan Succinate] 100 mg PO PRN PRN 09/29/20 Topiramate [Topamax*] 100 mg PO BID 09/29/20 Ubidecarenone [Co Q-10] 100 mg PO DAILY 09/29/20 Umeclidinium Brm/Vilanterol Tr [Anoro Ellipta 62.5-25 Mcg INH] 1 puff IH BEDTIME 09/29/20 dexAMETHasone [Dexamethasone] 1 mg PO BID 09/29/20 Followup: NONE,NONE [Primary Care Provider] - Time spent managing pt's care (in minutes): 35
== END 2020-10-02 01:40 | disposition short-term general hospital (02) | DRG 551 ==
LOC: ER 13:24 → ERHOLD 17:18 → 4TH 18:39
PROVIDERS: ADMIT Hospitalist; ATTEND Internal Medicine
DX: S22.059A Unspecified fracture of T5-T6 vertebra, initial encounter for closed fracture (principal); J96.22 Acute and chronic respiratory failure with hypercapnia; J44.1 Chronic obstructive pulmonary disease with (acute) exacerbation; M48.04 Spinal stenosis, thoracic region; M54.9 Dorsalgia, unspecified; R53.1 Weakness; R32 Unspecified urinary incontinence; W19.XXXA Unspecified fall, initial encounter; Y92.9 Unspecified place or not applicable; Z99.81 Dependence on supplemental oxygen; Z88.2 Allergy status to sulfonamides; Z20.822 Contact with and (suspected) exposure to COVID-19
CPT/HCPCS: 36415; 70450; 71045; 71250; 72157; 72158; 74176; 80048; 80053; 80076; 81003; 82306; 82550; 82805; 83690; 83735; 83880; 84100; 84484; 85025; 85610; 85652; 86038; 86140; 87040; 87077; 87186; 87205; 93005; 94640; 94660; 94760; 96374; 96375; 97110; 97161; 97530; 99285; A9577; J1100; J1170; J1650; J2270; J2405; J7030; J8540; U0003